=== PATIENT | female | born 1945 | race Caucasian/White ===

== ENCOUNTER 2017-04-21 14:00 | Emergency (ER) | payer MEDICARE, MEDICAID ==
--- NOTE | 2017-04-21 14:31 | ER Document Report ---
ED Dizziness/Weakness - General Mode of Arrival: Medic Information source: Patient - HPI Patient complains to provider of: Dizziness Associated symptoms: Other - see above <BALJEET LOPEZ - Last Filed: 04/21/17 15:59> <SETH POOLE - Last Filed: 04/21/17 16:13> - General Chief Complaint: Dizziness Stated Complaint: DIZZINESS,ARM NUMBNESS Time Seen by Provider: 04/21/17 14:07 Notes: Patient is a 72 year old female who presents to the ED with complaints of dizziness x1 week. Patient states she has not felt good for the past week. Patient states "I don't know what I am doing half the time" and she just feels "blah". Patient states she has also had a headache on the top of her head and temporal longer than a week. Patient describes her dizziness has the room spinning and also adds feeling lightheaded both of which are worse when standing up and during the day. Patient denies any recent head injury, chest pain or SOB, nausea, vomiting, diarrhea, or difficulty moving extremities. Patient is a smoker. Patient states she has no known medical problems. Patient is a poor historian and difficult to answer questions. Patient could not tell us why she had an EEG done today. (BALJEET LOPEZ) - Related Data Allergies/Adverse Reactions: No Known Allergies Allergy (Unverified 04/21/17 14:11) Past Medical History - General Information source: Patient - Social History Smoking Status: Never Smoker Chew tobacco use (# tins/day): No Frequency of alcohol use: None Drug Abuse: None Family History: Reviewed & Not Pertinent, DM <BALJEET LOPEZ - Last Filed: 04/21/17 15:59> Review of Systems - Review of Systems Constitutional: No symptoms reported EENT: No symptoms reported Cardiovascular: See HPI, Dizziness, Lightheaded. denies: Chest pain Respiratory: See HPI. denies: Short of breath Gastrointestinal: See HPI. denies: Diarrhea, Nausea, Vomiting Genitourinary: No symptoms reported Female Genitourinary: No symptoms reported Musculoskeletal: No symptoms reported Skin: No symptoms reported Hematologic/Lymphatic: No symptoms reported Neurological/Psychological: No symptoms reported <BALJEET LOPEZ - Last Filed: 04/21/17 15:59> Physical Exam <BALJEET LOPEZ - Last Filed: 04/21/17 15:59> <SETH POOLE - Last Filed: 04/21/17 16:13> - Vital signs Vitals: Temp Pulse Resp BP Pulse Ox 97.3 F 70 16 150/86 H 95 04/21/17 14:10 04/21/17 14:10 04/21/17 14:10 04/21/17 14:10 04/21/17 14:10 - Notes Notes: GENERAL: Alert, interacts well. No acute distress. HEAD: Normocephalic, atraumatic. EYES: Pupils equal, round, and reactive to light. Extraocular movements intact. ENT: Oral mucosa moist, tongue midline. NECK: Full range of motion. Supple. Trachea midline. LUNGS: Clear to auscultation bilaterally, no wheezes, rales, or rhonchi. No respiratory distress. HEART: Regular rate and rhythm. No gallops, or rubs. 2/6 Systolic murmur. ABDOMEN: Soft, non-tender. Non-distended. Bowel sounds present in all 4 quadrants. EXTREMITIES: Moves all 4 extremities spontaneously. No edema, dorsalis pedis pulses 2/4 bilaterally. No cyanosis. NEUROLOGICAL: Alert and oriented x3. Normal speech. Biceps and patellar DTRs 2+ bilaterally. No focal or neurological deficits. Gait is steady though uncertain , able to walk on her heels and on her toes, no evidence of ataxia. PSYCH: Laughs inappropriately, distracted. SKIN: Warm, dry, normal turgor. No rashes or lesions noted. (BALJEET LOPEZ) Course - Laboratory Result Diagrams: 04/21/17 14:50 04/21/17 14:50 <BALJEET LOPEZ - Last Filed: 04/21/17 15:59> - Laboratory Result Diagrams: 04/21/17 14:50 04/21/17 14:50 <SETH POOLE - Last Filed: 04/21/17 16:13> - Re-evaluation Re-evalutation: 04/21/17 16:09 CBC unremarkable, CMP unremarkable, cardiac enzymes negative, urinalysis unremarkable, EKG does not show any ectopy or ischemic changes. Despite having no evidence of dehydration the patient feels better after a liter of fluids. Though she could not remember for me why she had an EEG when she was walking to the bathroom with the nurse she told the nurse that it was because she "cannot remember shit" It appears to me that this patient likely has a larger constellation of more chronic symptoms that is currently undergoing workup by her outpatient primary care provider. Patient is actually somewhat suspicious for dementia to me. Patient will need continual follow-up as an outpatient. I see no acute life- threatening pathology at this time. Patient will be discharged home. (SETH POOLE) - Vital Signs Vital signs: Temp Pulse Resp BP Pulse Ox 97.3 F 70 16 150/86 H 96 04/21/17 14:10 04/21/17 14:10 04/21/17 14:10 04/21/17 14:10 04/21/17 15:07 - EKG Interpretation by Me Additional EKG results interpreted by me: 04/21/17 16:12 EKG shows sinus rhythm at a rate of 68, normal axis, normal intervals, no ST segment elevations or depressions, there are T-wave inversions that are isolated in aVL and V4, fairly generalized nonspecific T-wave flattening everywhere else with the exception of V2 per my interpretation. (SETH POOLE) Discharge <BALJEET LOPEZ - Last Filed: 04/21/17 15:59> <SETH POOLE - Last Filed: 04/21/17 16:13> - Discharge Clinical Impression: Dizziness, Malaise and fatigue Condition: Stable Disposition: HOME, SELF-CARE Additional Instructions: Today we did not find any specific explanation for why you feel dizzy and unwell. We did not find any signs of heart attack, stroke, diabetes, kidney failure or liver failure. We did not find any signs of urinary tract infection or pneumonia. Please follow-up with your primary care physician. Please return to the emergency department should she develop chest pain, shortness of breath, fevers or any new or concerning symptoms. Referrals: VIVIAN LUO MD [Primary Care Provider] - Follow up in 1 week Rodolfoibavril Attestation: 04/21/17 16:13 I personally performed the services described in the documentation, reviewed and edited the documentation which was dictated to the scribe in my presence, and it accurately records my words and actions. (SETH POOLE) Scribe Documentation - Scribe Written by Roger:: roger Key, 04/21/2017, 1456 acting as scribe for :: Felix <BALJEET LOPEZ - Last Filed: 04/21/17 15:59>
[2017-04-21] MEDS ORDERED: NORMAL SALINE 1000 ML 1,000 ML IV ONE (14:32)
[2017-04-21 15:03] LABS: ABSOLUTE EOSINOPHILS # (AUTO) 0.2 10^3/uL (0.0-0.6); ABSOLUTE LYMPHOCYTES (AUTO) 1.2 10^3/uL (0.5-4.7); ABSOLUTE MONOCYTES (AUTO) 0.5 10^3/uL (0.1-1.4); ABSOLUTE NEUT (AUTO) 4.1 10^3/uL (1.7-8.2); BASOPHILS % (AUTO) 0.4 % (0-2); EOSINOPHILS % (AUTO) 2.7 % (0-6); HEMATOCRIT 39.3 % (36.0-47.0); HEMOGLOBIN 13.5 g/dL (12.0-15.5); HGB HCT DIFFERENCE 1.2; MEAN CORPUSCULAR HEMOGLOBIN 27.5 pg (27.0-33.4); MEAN CORPUSCULAR HGB CONC 34.2 g/dL (32.0-36.0); MEAN CORPUSCULAR VOLUME 80 fl (80-97); MONOCYTES % (AUTO) 8.2 % (3-13); RED BLOOD COUNT 4.89 10^6/uL (3.72-5.28); RED CELL DISTRIBUTION WIDTH 13.8 % (11.5-14.0); SEGMENTED NEUTROPHILS % (AUTO) 68.7 % (42-78)
[2017-04-21 15:13] LABS: APPEARANCE,URINE CLEAR; BILIRUBIN,URINE NEGATIVE (NEGATIVE); GLUCOSE, URINE NEGATIVE (NEGATIVE); KETONES,URINE NEGATIVE (NEGATIVE); LEUKOCYTE ESTERASE,URINE NEGATIVE (NEGATIVE); NITRITE,URINE NEGATIVE (NEGATIVE); PROTEIN,URINE NEGATIVE (NEGATIVE); URINE SPECIFIC GRAVITY 1.003; UROBILINOGEN,URINE NEGATIVE mg/dL (<2.0)
[2017-04-21 15:27] LABS: ALANINE AMINOTRANSFERASE 43 U/L (9-52); ALBUMIN 4.6 g/dL (3.5-5.0); ALKALINE PHOSPHATASE 102 U/L (38-126); ANION GAP 12 (5-19); ASPARTATE AMINO TRANSFERASE 31 U/L (14-36); BILIRUBIN,DIRECT 0.4 mg/dL (0.0-0.4); BILIRUBIN,TOTAL 0.6 mg/dL (0.2-1.3); BLOOD UREA NITROGEN 8 mg/dL (7-20); CALCIUM 9.5 mg/dL (8.4-10.2); CARBON DIOXIDE 28 mmol/L (22-30); CHLORIDE 105 mmol/L (98-107); CREATINE KINASE 68 U/L (30-135); CREATININE RESULT 0.55 mg/dL (0.52-1.25); GLUCOSE 94 mg/dL (75-110); POTASSIUM 4.1 mmol/L (3.6-5.0); SODIUM 144.9 mmol/L (137-145); TOTAL PROTEIN 7.4 g/dL (6.3-8.2)
[2017-04-21 15:35] LABS: CREATINE KINASE MB 1.12 ng/mL (<4.55)
--- NOTE | 2017-04-21 15:35 | RADIOLOGY REPORT (SQ) ---
EXAM DESCRIPTION: CHEST SINGLE VIEW COMPLETED DATE/TIME: 04/21/2017 3:02 pm REASON FOR STUDY: dizziness COMPARISON: None. EXAM PARAMETERS: NUMBER OF VIEWS: One view. TECHNIQUE: Single frontal radiographic view of the chest acquired. RADIATION DOSE: NA LIMITATIONS: None. FINDINGS: LUNGS AND PLEURA: No opacities, masses or pneumothorax. No pleural effusion. MEDIASTINUM AND HILAR STRUCTURES: No masses. Contour normal. HEART AND VASCULAR STRUCTURES: Heart normal in size. Normal vasculature. BONES: No acute findings. HARDWARE: None in the chest. OTHER: No other significant finding. IMPRESSION: NO ACUTE RADIOGRAPHIC FINDING IN THE CHEST. TECHNICAL DOCUMENTATION: JOB ID: [id number]
[2017-04-21 15:42] LABS: TROPONIN I < 0.012 ng/mL
[2017-04-21 16:26] VITALS: BP 153/81
--- NOTE | 2017-04-21 17:24 | EKG REPORT ---
SEVERITY:- NORMAL ECG - SINUS RHYTHM : Confirmed by: Ciera Jackson MD 21-Apr-2017 17:23:53
== END 2017-04-21 16:26 | disposition home or self-care (01) ==
LOC: ER 14:00
DX: R42 Dizziness and giddiness (principal); R53.81 Other malaise; R53.83 Other fatigue; R51 Headache
CPT/HCPCS: 93005; 99284; 96360; 36415; 82553; 82550; 85025; 80053; 81001; 84484; 71010; 93010; J7030

== ENCOUNTER → 2017-05-19 | Outpatient (CLI) | payer MEDICARE, MEDICAID ==
--- NOTE | 2017-05-20 09:24 | WOMENS IMAGING REPORT ---
EXAM DESCRIPTION: BILAT SCREENING MAMMO W/CAD COMPLETED DATE/TIME: 05/19/2017 2:55 pm REASON FOR STUDY: ROUTINE SCREENING; Z12.31 Z12.31 ENCNTR SCREEN MAMMOGRAM FOR MALIGNANT NEOPLASM O F TAMI COMPARISON: None. TECHNIQUE: Standard craniocaudal and mediolateral oblique views of each breast recorded using digita l acquisition. LIMITATIONS: None. FINDINGS: RIGHT BREAST MASSES: In the right upper outer quadrant, 7 cm from the nipple, a nodule with questionable principal architectural firm ural distortion is present. This requires further evaluation with right breast CC and 90 mediolater al tomosynthesis, right breast CC and MLO cone compression magnification views, and ultrasound. CALCIFICATIONS: No new or suspicious calcifications. ARCHITECTURAL DISTORTION: None. DEVELOPING DENSITY: None. ASYMMETRY: None noted. OTHER: No other significant findings. LEFT BREAST MASSES: A low-density well-circumscribed 1 cm nodule is present in the central retroareolar region le ft breast, about 4 cm from the nipple. This requires further evaluation with ultrasound. CALCIFICATIONS: No new or suspicious calcifications. ARCHITECTURAL DISTORTION: None. DEVELOPING DENSITY: None. ASYMMETRY: None noted. OTHER: No other significant findings. Read with the assistance of CAD. .[facility] - R2 Cenova Version 1.3 .[facility] - R2 Cenova Version 1.3 .[facility] - R2 Cenova Version 2.4 .[facility] - R2 Cenova Version 2.4 .[facility] - R2 Human Resources Trainee Version 9.2 IMPRESSION: Right mammographic nodule versus superimposed shadows upper outer quadrant for which add itional diagnostic tomosynthesis, cone compression magnification views, and ultrasound are recommende d. Well-circumscribed low-density 1 cm nodule left central retroareolar region for which ultrasound is r ecommended. BREAST DENSITY: b. There are scattered areas of fibroglandular density. BIRAD: 0 Incomplete: Needs Additional Imaging Evaluation and/or prior Mammograms for Comparison. RECOMMENDATION: RECOMMENDED FOLLOW-UP: Additional bilateral diagnostic breast imaging as above The patient will be contacted for additional imaging. COMMENT: The patient has been notified of the results by letter per MQSA requirements. Additional no tification policies are in place for contacting patient with suspicious or incomplete findings. Quality ID #[id number]: The [employer] recommends an annual screening mammogram for women aged 40 years or over. This facility utilizes a reminder system to ensure that all patients receive reminder letters, and/or direct phone calls for appointments. This includes reminders for routine scr eening mammograms, diagnostic mammograms, or other Breast Imaging Interventions when appropriate. Th is patient will be placed in the appropriate reminder system. The [employer] (ACR) has developed recommendations for screening MRI of the breast s in certain patient populations, to be used in conjunction with mammography. Breast MRI surveillanc e may be appropriate for women with more than 20% lifetime risk of developing breast cancer as deter mined by genetic testing, significant family history of the disease, or history of mantle radiation f or Hodgkins Disease. ACR Practice Guidelines 2008. TECHNICAL DOCUMENTATION: FINDING NUMBER: (1) ASSESSMENT: (1) JOB ID: [id number] [employer]- All Rights Reserved
== END ==
LOC: WI 13:06
PROVIDERS: ATTEND Internal Medicine Geriatric Medicine
DX: Z12.31 Encounter for screening mammogram for malignant neoplasm of breast (principal)
CPT/HCPCS: 77067; G0202

== ENCOUNTER 2017-08-07 15:41 | Emergency (ER) | payer MEDICARE, MEDICAID ==
[2017-08-07 15:47] VITALS: BP 123/76
[2017-08-07] MEDS ORDERED: IBUPROFEN 600 MG TABLET PO ONE (16:09)
--- NOTE | 2017-08-07 16:16 | ER Document Report ---
ED General - General Chief Complaint: Fainting Stated Complaint: RIGHT ARM / LEG PAIN Time Seen by Provider: 08/07/17 16:04 Notes: The patient is a 72-year-old female, past medical history dementia, osteoarthritis, presents from [facility] after she had worsening bilateral shoulder pain and right hip pain over the past several weeks. Patient is unsure if she had a syncopal episode, but she told a nurse that she thinks she passed out. She denies any syncopal episodes to myself. Patient denies injury , chest pain, shortness of breath, fevers, numbness, tingling, head injury, headache, blurry vision or rash. TRAVEL OUTSIDE OF THE [place] IN LAST 30 DAYS: No - Related Data Allergies/Adverse Reactions: No Known Allergies Allergy (Unverified 04/21/17 14:11) Past Medical History - General Information source: Patient - Social History Smoking Status: Never Smoker Chew tobacco use (# tins/day): No Frequency of alcohol use: None Drug Abuse: None Family History: Reviewed & Not Pertinent, DM Patient has suicidal ideation: No Patient has homicidal ideation: No Renal/ Medical History: Denies: Hx Peritoneal Dialysis - Immunizations Hx Diphtheria, Pertussis, Tetanus Vaccination: Yes Review of Systems - Review of Systems Notes: REVIEW OF SYSTEMS: CONSTITUTIONAL: -fevers, -chills EENT: -eye pain, -difficulty swallowing, -nasal congestion CARDIOVASCULAR:-chest pain, +possible syncope RESPIRATORY: -cough, -SOB GASTROINTESTINAL: -abdominal pain, - nausea, -vomiting, -diarrhea GENITOURINARY: -dysuria, -hematuria MUSCULOSKELETAL: +B/L shoulder and right hip pain, -back pain, -neck pain SKIN: -rash or skin lesions. HEMATOLOGIC: -easy bruising or bleeding. LYMPHATIC: -swollen, enlarged glands. NEUROLOGICAL: -altered mental status or loss of consciousness, -headache, - neurologic symptoms PSYCHIATRIC: -anxiety, -depression. ALL OTHER SYSTEMS REVIEWED AND NEGATIVE. Physical Exam - Vital signs Vitals: Temp Pulse Resp BP Pulse Ox 98.4 F 67 14 123/76 96 08/07/17 15:46 08/07/17 15:46 08/07/17 15:46 08/07/17 15:46 08/07/17 15:46 - Notes Notes: PHYSICAL EXAMINATION: GENERAL: Well-appearing, well-nourished and in no acute distress. HEAD: Atraumatic, normocephalic. EYES: Pupils equal round and reactive to light, extraocular movements intact, sclera anicteric, conjunctiva are normal. ENT: nares patent, oropharynx clear without exudates. Moist mucous membranes. NECK: Normal range of motion, supple without lymphadenopathy LUNGS: Breath sounds clear to auscultation bilaterally and equal. No wheezes rales or rhonchi. HEART: Regular rate and rhythm without murmurs ABDOMEN: Soft, nontender, normoactive bowel sounds. No guarding, no rebound. No masses appreciated. EXTREMITIES: Normal range of motion, no pitting or edema. Mild tenderness over right anterior shoulder. No cyanosis. Strong distal pulses. NEUROLOGICAL: Cranial nerves grossly intact. Normal speech, normal gait. Normal sensory and motor exams. PSYCH: Normal mood, normal affect. SKIN: Warm, Dry, normal turgor, no rashes or lesions noted. Course - Re-evaluation Re-evalutation: Patient appears well. Blood work is unremarkable and patient once again denies any syncopal episodes. Her EKG does not show any evidence of ST elevations and she does have intermittent PVCs. Patient's chronic joint pain is consistent with her known arthritis and instructed her to continue Motrin with food to help. She will follow with her primary care physician. - Vital Signs Vital signs: Temp Pulse Resp BP Pulse Ox 98.4 F 67 14 123/76 96 08/07/17 15:46 08/07/17 15:46 08/07/17 15:46 08/07/17 15:46 08/07/17 15:46 - Laboratory Result Diagrams: 08/07/17 16:20 08/07/17 16:20 Laboratory results interpreted by me: 08/07/17 16:20 RDW 14.1 H - EKG Interpretation by Pr EKG shows normal: Sinus rhythm, [place], Intervals, QRS Complexes, ST-T Waves Rate: Normal Rhythm: PVC's Discharge - Discharge Clinical Impression: Arthralgia Qualifiers: Joint pain location: unspecified Qualified Code(s): M25.50 - Pain in unspecified joint Episode of syncope Qualifiers: Syncope type: unspecified Qualified Code(s): R55 - Syncope and collapse Condition: Stable Disposition: HOME, SELF-CARE Additional Instructions: Arthralgia Arthralgia is pain in the joints. We use the word arthralgia to describe joint pain where there's no history of injury, no known joint disease, and the joints are normal to examination. Arthralgia can be a symptom of an acute illness, such as influenza, hepatitis, or serum sickness. Sometimes the joint pain comes before any other symptoms. Arthralgia can also be an early symptom of joint disease, such as rheumatoid arthritis or lupus. If arthralgia is accompanied by an acute illness that explains the joint pain, such as mononucleosis, no further testing needs to be done. When there's no clear reason for the pain, tests may be done to see if there's an inflammatory disease of the joints. The usual treatment is anti-inflammatory medication, such as ibuprofen. Joint aches can be soothed with a heating pad or hot compress. If joints remain painful more than a few days, you'll need testing and followup. Return if a joint becomes swollen, red, or severely painful. SYNCOPAL EPISODE: Syncope (fainting or near-fainting) can occur from many different health problems. Or it can be a simple fainting spell requiring no treatment. It is safe for you to go home, but further evaluation will likely be necessary. Your work-up may include tests for internal bleeding, heart disease, medication problems, or near-strokes. Tests are not always required, however, depending on the nature of your problem. The warning signs of an impending faint include: dizziness, lightheadedness , nausea, hot flashes, tingling, and weakness. If this happens, lay down and put your feet up, then wait until all of these symptoms have passed before standing up again. If these episodes become recurrent, or if you develop chest pain, heart palpitations, mental confusion, blurred vision, or headache, then you should call the physician, or go to the emergency room. NORMAL EXAM AND WORKUP: At this time, your examination and workup show no significant abnormality. No significant abnormal physical findings were noted. All laboratory, EKG, and imaging (x-ray, CT scans, ultrasound) studies that were ordered show no significant abnormality. Although your examination and all studies that were ordered showed no significant abnormal finding, there are no examinations and no studies that are 100% accurate. There is always the possibility that some abnormality could exist and not be detected with physical examination or within the limits and capabilities of laboratory and other studies. You should return or follow up as you were instructed on your visit today for further evaluation if your symptoms do not resolve. FOLLOW-UP CARE: If you have been referred to a physician for follow-up care, call the physician s office for an appointment as you were instructed or within the next two days. If you experience worsening or a significant change in your symptoms, notify the physician immediately or return to the Emergency Department at any time for re-evaluation. Prescriptions: Fluticasone Propionate [Flonase Nasal [place] 50 Mcg/[place] 16 gm] 2 sprays NASL Q12 #1 inhaler Referrals: YUVAL BLANK MD [COMMUNITY BASED STAFF] - Follow up as needed
[2017-08-07 16:48] LABS: ABSOLUTE EOSINOPHILS # (AUTO) 0.2 10^3/uL (0.0-0.6); ABSOLUTE LYMPHOCYTES (AUTO) 1.4 10^3/uL (0.5-4.7); ABSOLUTE MONOCYTES (AUTO) 0.5 10^3/uL (0.1-1.4); ABSOLUTE NEUT (AUTO) 4.1 10^3/uL (1.7-8.2); BASOPHILS % (AUTO) 0.6 % (0-2); EOSINOPHILS % (AUTO) 3.4 % (0-6); HEMOGLOBIN 13.9 g/dL (12.0-15.5); HGB HCT DIFFERENCE 1.7; LYMPHOCYTES % (AUTO) 22.4 % (13-45); MEAN CORPUSCULAR HEMOGLOBIN 27.9 pg (27.0-33.4); MEAN CORPUSCULAR HGB CONC 34.7 g/dL (32.0-36.0); MEAN CORPUSCULAR VOLUME 80 fl (80-97); MONOCYTES % (AUTO) 8.1 % (3-13); RED BLOOD COUNT 4.97 10^6/uL (3.72-5.28); RED CELL DISTRIBUTION WIDTH 14.1 % (11.5-14.0); SEGMENTED NEUTROPHILS % (AUTO) 65.5 % (42-78); WHITE BLOOD COUNT 6.3 10^3/uL (4.0-10.5)
[2017-08-07 17:10] LABS: ALANINE AMINOTRANSFERASE 32 U/L (9-52); ALBUMIN 4.6 g/dL (3.5-5.0); ALKALINE PHOSPHATASE 101 U/L (38-126); ANION GAP 12 (5-19); ASPARTATE AMINO TRANSFERASE 27 U/L (14-36); BILIRUBIN,DIRECT 0.2 mg/dL (0.0-0.4); BILIRUBIN,TOTAL 0.5 mg/dL (0.2-1.3); BLOOD UREA NITROGEN 13 mg/dL (7-20); CALCIUM 9.5 mg/dL (8.4-10.2); CARBON DIOXIDE 30 mmol/L (22-30); CHLORIDE 103 mmol/L (98-107); CREATINE KINASE 55 U/L (30-135); CREATININE RESULT 0.64 mg/dL (0.52-1.25); GLUCOSE 81 mg/dL (75-110); SODIUM 144.6 mmol/L (137-145); TOTAL PROTEIN 7.2 g/dL (6.3-8.2)
--- NOTE | 2017-08-07 20:20 | EKG REPORT ---
SEVERITY:- ABNORMAL ECG - SINUS RHYTHM VENTRICULAR TRIGEMINY PROBABLE INFERIOR INFARCT, AGE INDETERMINATE NONSPECIFIC ST-T CHANGES ANTEROLATERAL LEADS. : Confirmed by: Garrett Kidd MD 07-Aug-2017 20:19:16
== END 2017-08-07 17:40 | disposition home or self-care (01) ==
LOC: ER 15:41
DX: G89.29 Other chronic pain (principal); M25.511 Pain in right shoulder; M25.512 Pain in left shoulder; M25.551 Pain in right hip; M19.90 Unspecified osteoarthritis, unspecified site; I49.3 Ventricular premature depolarization; R55 Syncope and collapse
CPT/HCPCS: 93005; 99284; 36415; 82550; 85025; 80053; 93010; A9270

== ENCOUNTER 2017-10-28 10:29 | Emergency (ER) | payer MEDICARE, MEDICAID ==
--- NOTE | 2017-10-28 12:29 | ER Document Report ---
HPI - HPI Patient complains to provider of: Leg pain Onset: Other - 3 days Onset/Duration: Persistent Quality of pain: Achy Pain Level: 3 Context: Patient presents complaining of left lower leg pain for the past 3 days. Patient denies any injury. Patient additionally complains of pruritic skin and is continuously scratching. Patient is from [facility]. Associated Symptoms: Other - Left leg pain, skin rash. denies: Chest pain, Fever, Headache, Vomiting, Shortness of breath Exacerbated by: Denies Relieved by: Denies Similar symptoms previously: No Recently seen / treated by doctor: No - ROS ROS Unobtainable: Yes ROS unobtainable due to patient's medical condition - Patient with dementia - MUSCULOSKELETAL Musculoskeletal: REPORTS: Extremity pain - DERM Skin Problems: Rash Past Medical History - General Information source: Patient, Transfer Record Cannot obtain history due to: Dementia - Social History Smoking Status: Current Every Day Smoker Chew tobacco use (# tins/day): No Frequency of alcohol use: None Drug Abuse: None Lives with: [facility] Family History: Reviewed & Not Pertinent, DM Patient has suicidal ideation: No Patient has homicidal ideation: No - Past Medical History Cardiac Medical History: Reports: Hx Hypertension Renal/ Medical History: Denies: Hx Peritoneal Dialysis Surgical Hx: Negative - Immunizations Hx Diphtheria, Pertussis, Tetanus Vaccination: Yes Vertical Provider Document - CONSTITUTIONAL Agree With Documented VS: Yes Exam Limitations: No Limitations General Appearance: WD/WN, No Apparent Distress Notes: Patient continuously picking and scratching at skin - INFECTION CONTROL TRAVEL OUTSIDE OF THE [place] IN LAST 30 DAYS: No - HEENT HEENT: Atraumatic, Normocephalic - NECK Neck: Normal Inspection, Supple - RESPIRATORY Respiratory: Breath Sounds Normal, No Respiratory Distress, Chest Non-Tender O2 Sat by Pulse Oximetry: 97 - CARDIOVASCULAR Cardiovascular: Regular Rate, Regular Rhythm Pulses: Normal: Dorsalis pedis - BACK Back: Normal Inspection - MUSCULOSKELETAL/EXTREMETIES Musculoskeletal/Extremeties: MAEW, FROM, Tender - Patient with tenderness to left lower extremity, worse anterior aspect of left lower leg, leg with normal skin color and temperature., No Edema. negative: Eccymosis - NEURO Level of Consciousness: Awake, Alert, Appropriate Motor/Sensory: No Motor Deficit - DERM Integumentary: Warm, Dry, Rash - Patient with multiple excoriated small ulcerations to extremities and face in various stages of healing. Course - Re-evaluation Re-evalutation: 10/28/17 12:29 doppler plant technician/control room operator at bedside 10/28/17 13:27 Agent with skin lesions that are pruritic. Patient with multiple excoriations in various stages of healing to extremities, face and trunk. - Vital Signs Vital signs: Temp Pulse Resp BP Pulse Ox 98.1 F 70 18 143/70 H 97 10/28/17 10:37 10/28/17 10:37 10/28/17 10:37 10/28/17 10:37 10/28/17 10:37 - Diagnostic Test Radiology reviewed: Reports reviewed Discharge - Discharge Clinical Impression: Hx of essential hypertension, Compulsive skin picking, Left leg pain, Skin rash Condition: Stable Disposition: HOME, SELF-CARE Instructions: Acetaminophen, Anti-Mite Skin Creams, Leg Pain Nonspecific ([facility]) , Scabies ([facility]) Additional Instructions: Return immediately for any new or worsening symptoms Followup with your primary care provider, call tomorrow to make a followup appointment Launder all your bed linens and put to the dryer Avoid scratching and picking at your skin Prescriptions: Permethrin [Elimite] 60 gm TP ONCE #60 gm Forms: Elevated Blood Pressure Referrals: VIVIAN LUO MD [Primary Care Provider] - 10/31/17
--- NOTE | 2017-10-28 12:59 | RADIOLOGY REPORT (SQ) ---
EXAM DESCRIPTION: VENOUS UNILATERAL LOWER COMPLETED DATE/TIME: 10/28/2017 12:47 pm REASON FOR STUDY: LLE pain COMPARISON: None. TECHNIQUE: Dynamic and static price scale and color images acquired of the left leg venous system. Se lected spectral images acquired with additional compression and augmentation maneuvers. The contralat eral common femoral vein and saphenofemoral junction were also imaged. Images stored on PACS. LIMITATIONS: None. FINDINGS: LEFT COMMON FEMORAL: Normal phasicity, compression and augmentation. No visualized echogenic material on g ray scale. No defects on color images. FEMORAL: Normal compression and augmentation. No visualized echogenic material on price scale. No defe cts on color images. POPLITEAL: Normal compression, augmentation. No visualized echogenic material on price scale. No defec ts on color images. CALF VESSELS: Normal compression, augmentation. No visualized echogenic material on price scale. No de fects on color images. GSV and SSV: Normal compression, augmentation. No visualized echogenic material on price scale. No def ects on color images. ANY DEEP VENOUS INSUFFICIENCY: Not evaluated. ANY EVIDENCE OF POPLITEAL CYST: No. OTHER: No other significant finding. RIGHT COMMON FEMORAL VEIN AND SAPHENOFEMORAL JUNCTION: Normal phasicity, compression and augmentation. No visualized echogenic material on price scale. No de fects on color images. IMPRESSION: NO EVIDENCE OF DVT OR SVT IN THE LEFT LEG. TECHNICAL DOCUMENTATION: JOB ID: [id number] [employer]- All Rights Reserved
[2017-10-28 14:08] VITALS: BP 117/84
== END 2017-10-28 14:15 | disposition home or self-care (01) ==
LOC: ER 10:29
DX: M79.605 Pain in left leg (principal); R21 Rash and other nonspecific skin eruption; L29.9 Pruritus, unspecified; I10 Essential (primary) hypertension; F17.200 Nicotine dependence, unspecified, uncomplicated
CPT/HCPCS: 93971; 99284

== ENCOUNTER → 2018-05-23 | Outpatient (CLI) | payer MEDICARE ==
--- NOTE | 2018-05-24 16:05 | WOMENS IMAGING REPORT ---
EXAM DESCRIPTION: 3D SCREENING MAMMO BILAT COMPLETED DATE/TIME: 05/23/2018 10:48 am REASON FOR STUDY: BIALTERAL SCREENING MAMMO 3D/Z12.31 Z12.31 ENCNTR SCREEN MAMMOGRAM FOR MALIGNANT NEOPLASM OF TAMI COMPARISON: 05/19/2017 TECHNIQUE: Standard craniocaudal and mediolateral oblique views of each breast recorded using digita l acquisition and breast tomosynthesis. LIMITATIONS: None. FINDINGS: RIGHT BREAST MASSES: No suspicious masses. CALCIFICATIONS: No new or suspicious calcifications. ARCHITECTURAL DISTORTION: None. DEVELOPING DENSITY: None. ASYMMETRY: None noted. OTHER: No other significant findings. LEFT BREAST MASSES: Well-circumscribed mammographic nodules left central retroareolar region, 9 mm in diameter. Ultrasound is recommended for followup. CALCIFICATIONS: No new or suspicious calcifications. ARCHITECTURAL DISTORTION: None. DEVELOPING DENSITY: None. ASYMMETRY: None noted. OTHER: No other significant findings. Read with the assistance of CAD. .[facility] - R2 Cenova Version 1.3 .[facility] - R2 Cenova Version 1.3 .[facility] - R2 Cenova Version 2.4 .[facility] [place] - R2 Cenova Version 2.4 .[facility] - R2 Bottle Blower Version 9.2 IMPRESSION: No mammographic/ tomosynthesis evidence for malignancy right breast. Well-circumscribed low-density mammographic nodule 9 mm diameter left central retroareolar region for which left breast ultrasound is recommended. BREAST DENSITY: c. The breasts are heterogeneously dense, which may obscure small masses. BIRAD: 0 Incomplete: Needs Additional Imaging Evaluation and/or prior Mammograms for Comparison. RECOMMENDATION: RECOMMENDED FOLLOW-UP: Left breast ultrasound The patient will be contacted for additional imaging. COMMENT: The patient has been notified of the results by letter per [place] requirements. Additional no tification policies are in place for contacting patient with suspicious or incomplete findings. Quality ID #[id number]: The [employer] recommends an annual screening mammogram for women aged 40 years or over. This facility utilizes a reminder system to ensure that all patients receive reminder letters, and/or direct phone calls for appointments. This includes reminders for routine scr eening mammograms, diagnostic mammograms, or other Breast Imaging Interventions when appropriate. Th is patient will be placed in the appropriate reminder system. The [employer] (ACR) has developed recommendations for screening MRI of the breast s in certain patient populations, to be used in conjunction with mammography. Breast MRI surveillanc e may be appropriate for women with more than 20% lifetime risk of developing breast cancer as deter mined by genetic testing, significant family history of the disease, or history of mantle radiation f or Hodgkins Disease. ACR Practice Guidelines 2008. DBT Technology DBT is a type of tomographic mammography. With conventional mammography, overlapping breast tissue ma y make lesions difficult to detect, even with good compression. DBT uses an x-ray tube that rotates a round the breast, taking images at different angles. These images are then combined to create thin sl ices of the breast that the radiologist can view as a 3D reconstruction. The Magiq unit can perform full-field digital mammograms (2D imaging); or DBT (3D imaging); or both, in a combination mode that quickly performs both the mammogram and the tomosynthesis scan while the breast is still compressed. PQRS 6045F: Fluoroscopic imaging is not utilized for breast tomosynthesis. TECHNICAL DOCUMENTATION: FINDING NUMBER: (1) ASSESSMENT: (1) JOB ID: [id number] [employer]- All Rights Reserved Reading location - IP/workstation name: [facility]
== END ==
LOC: WI 10:20
PROVIDERS: ATTEND Internal Medicine Geriatric Medicine
DX: Z12.31 Encounter for screening mammogram for malignant neoplasm of breast (principal); N63.42 Unspecified lump in left breast, subareolar
CPT/HCPCS: 77063; 77067

== ENCOUNTER → 2018-06-05 | Outpatient (CLI) | payer MEDICARE, MEDICAID ==
--- NOTE | 2018-06-05 14:38 | WOMENS IMAGING REPORT ---
EXAM DESCRIPTION: U/S BREAST UNILAT LIMITED COMPLETED DATE/TIME: 06/05/2018 11:32 am REASON FOR STUDY: LT BREAST NODULE N63.42 UNSPECIFIED LUMP IN LEFT BREAST, SUBAREOLAR COMPARISON: Mammograms 05/23/2018 TECHNIQUE: Real-time and static grayscale imaging performed of the left breast targeted to the area of mammographic concern. Selected color Doppler images recorded. LIMITATIONS: None. FINDINGS: MASS: No mass identified. Normal glandular tissue. OTHER: In the central retroareolar region left breast, a 9 mm simple cyst is present. This correlate s with the mammographic findings. This is benign and requires no further specific workup. IMPRESSION: Benign breast cyst 9 mm in size, left side BIRAD: 2 Benign findings. RECOMMENDATION: RECOMMENDED FOLLOW-UP: Please continue yearly bilateral screening tomosynthesis in A ugust 2019 COMMENT: The [employer] (ACR) has developed recommendations for screening MRI of the breasts in certain patient populations, to be used in conjunction with mammography. Breast MRI s urveillance may be appropriate for women with more than 20% lifetime risk of developing breast cancer as determined by genetic testing, significant family history of the disease, or history of mantle r adiation for Hodgkins Disease. ACR Practice Guidelines 2008. TECHNICAL DOCUMENTATION: JOB ID: [id number] [employer]- All Rights Reserved Reading location - IP/workstation name: [facility]-[email or web address]
== END ==
LOC: WI 10:09
PROVIDERS: ATTEND Internal Medicine Geriatric Medicine
DX: N63.42 Unspecified lump in left breast, subareolar (principal)
CPT/HCPCS: 76642